=== PATIENT | female | born 1995 | race Hispanic/Latino ===

== ENCOUNTER 2022-01-19 16:33 | Emergency (ER) | payer BC ==
[~2022-01-19] VITALS: Ht 157.5 cm; Wt 87.5 kg
[2022-01-19] MEDS ORDERED: IBUPROFEN 600 MG TAB PO STA (16:57)
[2022-01-19] MEDS ORDERED: SODIUM CHLORIDE 0.9% 1000ML 1,000 ML IV STA (17:00)
[2022-01-19] MEDS ORDERED: MECLIZINE HCL 12.5 MG TAB PO ONE (17:00)
[2022-01-19 17:20] LABS: BASOPHILS # (AUTO) 0.1 (0.0-0.1); BASOPHILS % 0.5 % (0.0-1.0); EOSINOPHILS # (AUTO) 0.1 (0.0-0.4); EOSINOPHILS % 0.4 % (0.0-6.0); HEMATOCRIT 38.1 % (34.2-44.1); HEMOGLOBIN 11.6 g/dL (12.0-16.0); LYMPHOCYTES # (AUTO) 2.7 (1.0-3.2); LYMPHOCYTES % 19.6 % (18.0-39.1); MEAN CORPUSCULAR HGB CONC 30.4 g/dL (31-35); MEAN CORPUSCULAR VOLUME 88.8 fL (81-99); MONOCYTES # (AUTO) 0.8 (0.2-0.8); MONOCYTES % 5.9 % (4.4-11.3); NEUTROPHILS # (AUTO) 10.2 (2.1-6.9); NEUTROPHILS % 73.2 % (38.7-80.0); PLATELET COUNT 340 x10e3/uL (140-360); RED BLOOD COUNT 4.29 x10e6/uL (3.6-5.1); RED CELL DISTRIBUTION WIDTH 13.3 % (11.7-14.4)
[2022-01-19] MEDS ORDERED: DIAZEPAM 5 MG TAB PO ONE (17:30)
[2022-01-19 17:36] LABS: ANION GAP 13.2 mmol/L (8-16); CALCIUM 9.2 mg/dL (8.4-10.2); CREATININE, SERUM 0.72 mg/dL (0.57-1.11); POTASSIUM 4.2 mmol/L (3.5-5.1)
[2022-01-19 18:08] LABS: CLARITY,URINE CLEAR (CLEAR); COLOR,URINE YELLOW (YELLOW)
[2022-01-19 18:10] LABS: LEUKOCYTE ESTERASE ,URINE MODERATE (NEGATIVE); NITRITE,URINE NEGATIVE (NEGATIVE)
[2022-01-19 18:11] LABS: KETONES,URINE NEGATIVE (NEGATIVE); PROTEIN,URINE DIPSTICK NEGATIVE (NEGATIVE); URINE UROBILINOGEN 0.2 mg/dL (0.2 - 1)
[2022-01-19 18:21] LABS: BACTERIA,URINE MODERATE /HPF; EPITHELIAL CELLS,URINE FEW /LPF
[2022-01-19] MEDS ORDERED: CEFPODOXIME PR200 MG PO (19:06)
== END 2022-01-19 20:13 | disposition home or self-care (01) ==
LOC: ER 16:47
DX: R51.9 Headache, unspecified (principal); N39.0 Urinary tract infection, site not specified; R42 Dizziness and giddiness; R11.0 Nausea
CPT/HCPCS: 36415; 70450; 80048; 81001; 84702; 85025; 99284; J7030; J8597